=== PATIENT | female | born 2005 | race Caucasian/White ===

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

== ENCOUNTER 2025-04-14 07:53 | Day surgery (SDC) | payer OTHER, SELFPAY ==
--- OUTSIDE RECORDS SUMMARY | 2025-03-31 17:37 | XMS_ITS | Encounter Summary ---
Author Organization [facility] Address [address] [place] [address] Phone Care Team Providers Care Medical Record Consultant Name Role Phone Shayy Love DO Primary Care Provider [phone] Encounter Details Date Type Department Care Team (Late st Contact Info) Description 01/10/2017 Conversion Encounter [facility] [address] [place] [address] Social History Tobacco Use Types Packs/Day Years [...] Care Team (Late st Contact Info) Description 04/07/2025 2:15 PM EST Office Visit [address] [address] Shayy Love DO 150 [place] [address] 05/10/2025 9:00 AM EST Office Visit [address] [address] Shayy Love DO 150 [place] [address] documented as of this encounter Visit Diagnoses Not on filedocumented in this encounter Care Teams Medical Record Consultant Relationship Specialty Start Date End Date Shayy Love DO 150 [facility] [place] [address] PCP - General 01/04/17 documented as of this encounter
--- OUTSIDE RECORDS SUMMARY | 2025-03-31 17:37 | XMS_ITS | Encounter Summary ---
Author Organization [facility] Address [address] [place] [address] Phone Care Team Providers Care A Class Lineman Name Role Phone IvanShayy cline Primary Care Provider [phone] Encounter Details Date Type Department Care Team ([facility] st Contact Info) Description 02/15/2025 Results Follow-Up [facility] [place] [address] [place] [address] [place] [address] [place] [address] Social History Tobacco Use Types Packs/Day Years Used Date Smoking Tobacco: Never Smokeless Tobacco: Never Alcohol Use Standard Drinks/Week Comments Never 0 (1 standard drink = 0.6 oz pur e alcohol) Hunger/Food Answer Date Recorded In the last 12 months, did y ou or your family ever eat less than you felt you should because there wasn't enough money for food? No 11/30/2024 Stable Housing Answer Date Recorded Are you worried that in the next 2 months you may not have stable housing? No 11/30/2024 Transportation Concerns Answer Date Rec orded In the last 12 months, have you or your family ever had to go without healthcare because you didn't have a way to get there? No 11/30/2024 Hazards in Home Answer Date Recorded Think about the place you li ve. Do you have problems with any of the following? Pests (mice or roaches), mold, no/not working smoke detectors, water leaks, no window guards. No 2024 Financing Utilities Answer Date Recorde d In the last 12 months, has t he electric, gas, oil, or water company threatened to shut off your services in your home? No 11/30/2024 Safety at Home Answer Date Recorded Are you or your family worried about feeling saf e in your home? No 11/30/2024 Outside Support Answer Date Recorded Do you feel that you need mo re support from other people or programs to help you care for yourself or your family? No 11/30/2024 Understanding Health Concerns Answer Da te Recorded Do you need help understandi ng your or your child's healthcare needs (diagnosis, medications, plan, etc.)? No 11/30/2024 Financing Health Concerns Answer Date R ecorded In the last 12 months, was t here a time when your child needed to see a doctor or get medications or supplies but could not because of cost? No 11/30/2024 Missing School or Work Answer Date Leo rded Did you or your child miss s chool or work because of a health problem that could have been avoided? No 11/30/2024 Child Education Answer Date Recorded Do you have concerns about y our/your child's learning or behavior in school, preschool, or daycare? No 11/30/2024 Comments No Sex and Gender Information Value Date Recorded Sex Assigned at Not on file Legal Sex Female 5:21 PM EDT Gender Identity Not on file Sexual Orientation Straight 06/09/2022 8: 16 AM EST documented as of this encounter Plan of Treatment Upcoming Encounters Date Type Department Care Team (Late st Contact Info) Description 04/07/2025 2:15 PM EST Office Visit [address] [address] Shayy Love DO [address] [place] [address] 05/10/2025 9:00 AM EST Office Visit [address] [address] Shayy Love DO [address] [place] [address] documented as of this encounter Visit Diagnoses Not on filedocumented in this encounter Care Teams A Class Lineman Relationship Specialty Start Date End Date Shayy Love DO 150 [facility] [place] [address] PCP - General 01/04/17 documented as of this encounter
--- OUTSIDE RECORDS SUMMARY | 2025-03-31 17:37 | XMS_ITS | Clinical Summary ---
Author Organization [facility] Address [address] [place] [address] Phone Care Team Providers Care Cost Estimator Name Role Phone Shayy Love DO Primary Care Provider [phone] Allergies Active Allergy Reactions Criticality Noted Date Comments Amoxicillin Rash Low Medications sertraline 25 MG tabletIndicati ons:Generalize d anxiety disorder TAKE 1 TABLET BY MOUTH DAILY WITH SERTRALINE 100 MG TABLET FOR TOTAL OF 125 MG DAILY 90 tablet 02/23/20 25 Active loratadine 10 MG tabletIndicati ons:Acute URI Take 1 tablet (10 mg total) by mouth daily. 90 tablet 02/26/20 25 025 Active sertraline 100 MG tabletIndicati ons:Generalize d anxiety disorder TAKE 1 TABLET BY MOUTH EVERY DAY 90 tablet 03/24/20 25 Active sertraline 100 MG tabletIndicati ons:Generalize d anxiety disorder Take 1 tablet (100 mg total) by mouth once daily. 90 tablet 12/22/19 25 025 Discontinued sodium chloride 0.65 % nasal sprayIndicatio ns:Acute URI Administer 1 spray into each nostril as needed for congestion. 30 mL 1 02/26/20 25 025 Active Problems Patient Care Coordination No te Formatting of this note is d ifferent from the original. Nicotine patch Dosage: 21mg, 14mg, 7mg Use Instructions: Apply patch to clean skin, change patch every 24 hours 8-10-week treatment regimen: Use first dose for 6 weeks, then s tep down to lower dose; Use lower dose for 2 weeks, then s tep down to lowest dose for 2 more weeks Problem Noted Date Diagnosed Date Vaping nicotine dependence, non-tobacco product 04/15/2024 Overview (06/08/2024): Nicotine patch rx to assist w/ quitting- pt did not end up using as she quit cold turkey Assessment & Plan (11/30/2024 11:29 AM EDT): She vapes occasionally-socially, does not have her own vape device anymore She was doing well on the nicotine patch until summer came-sweating a lot and the patch would just come off Does not think she needs the patch for now but will let me know if she changes her mind in the future Assessment & Plan (09/21/2024 8:42 AM EDT): Doing well on patch so far, will be going to the 7mg patch soon Assessment & Plan (08/10/2024 4:33 PM EDT): [...] Use first dose for 6 weeks, then s tep down to lower dose; Use lower dose for 2 weeks, then s tep down to lowest dose for 2 more weeks Generalized anxiety disorder 03/16/2024 Overview (07/10/2024): Sertraline start MAR 19-up to 125 mg College counselor VANGIE Previous meds: Fluoxetine start MAR 19-nausea, DCed after 2 weeks, mom's concerns about other family members not doing well on this med Assessment & Plan (11/30/2024 11:27 AM EDT): She has noticed increased and sweating especially at night since she started sertraline-this is a possible side effect and we could try to decrease her dose or switch her to another medication if she would like It is not bothering her that much and she prefers to stay on sertraline so we will continue 125 mg dose since she is doing well on it Follow-up in 6 months Assessment & Plan (09/21/2024 11:56 AM EDT): BH screens reviewed- she likes her current sertraline dose and does not want to increase it Follow-up at her annual checkup in November-continue sertraline at 125 mg Assessment & Plan (08/10/2024 4:41 PM EDT): [...] Med check in a month May consider [facility] referral Assessment & Plan (06/12/2024 12:19 PM [...] Again encouraged patient to reach out to [facility] for student counseling services Assessment & Plan (03/16/2024 1:49 PM EDT): HAKEEM very high scoring After counseling the patient on risks and benefits of SSRIs, we will start prozac 10mg. Med start check-in call in a week by [facility] staff; knows to call immediately for significant side effects, especially significant agitation or any new thoughts about self-harm. F/u with me in 3 weeks. Nonintractable headache 03/16/2024 Overview (06/12/2024): Ribo and Mag suppl trial-nauseous with magnesium so DCed Overnight stay @ [facility] FEB [address] head wnl Assessment & Plan (11/30/2024 11:27 AM EDT): Had neurology consult last month-did not think prophylactic or daily headache med was needed; follow-up in February Assessment & Plan (09/21/2024 8:41 AM EDT): Neuro CS in October- would prefer to see Neuro first before adding any meds for her HAs Assessment & Plan (08/10/2024 4:32 PM EDT): [...] her TFT in meantime Strabismus 01/25/2016 Overview (09/21/2024): seeing Dr. Roblero 2024 Post-op 2024 Alternating strabismus per 2022 note [facility] No glasses currently Assessment & Plan (11/30/2024 11:28 AM EDT): S/p surgical correction, seeing Dr. Roblero, may be having additional surgery in the future Assessment & Plan (09/21/2024 12:01 PM EDT): just had surgery- may need to have another one done in 2mo to fully correct it Assessment & Plan (06/12/2024 12:21 PM EST): Has consult with Dr. Roblero in July Assessment & Plan (05/14/2024 7:33 PM EST): She did write a letter to Dr. Roblero about missing her consult and was able to re-book appointment for JUL25 Assessment & Plan (04/15/2024 2:05 PM EST): Dr. Roblero requested she write him a letter stating why she missed her consult w/ him- she has the letter all ready to mail out, just needs to send it! Assessment & Plan (03/25/2024 5:57 PM EDT): She was recently seen at [facility] and referred to a group near [place] for a consult on her strabismus but this appointment is not until August 2024 I will check with referrals to see if she can be seen by Dr. Roblero locally who does see patients adult and pediatric with strabismus Assessment & Plan (03/16/2024 1:26 PM EDT): Has documented alternating strabismus and sees [facility] She feels her strabismus is worse lately- [...] Assessment & Plan (11/29/2023 1:20 PM EDT): [facility] No glasses currently Resolved Problems Problem Noted Date Diagnosed Date Resolved Date Elevation of levels of liver transaminase levels 06/24/2024 08/10/2024 Overview (06/24/2024): May 2024-very mild we elevated AST, ALT; will repeat in 2 to 3 months Assessment & Plan (07/10/2024 9:34 AM EST): Repeat labs ordered Nausea 03/25/2024 11/30/2024 Overview (07/10/2024): Recurrent-improved Trial omeprazole/prilosec- did not [...] she is here for SSRI med check Influenza vaccine refused 06/08/2022 Cyst of skin and subcutaneous tissue 11/11/2018 11/29/2023 Overview (11/20/2020): ?dermoid cyst- could see surg in future for removal if bothering her Saw Derm who referred pt to pedi surg Encounters Date Type Department Care Team Description 03/23/[address] [address] Shayy Love DO Generalized anxiety disorder 02/25/2025 1:15 PM EDT Office Visit [address] [address] Cynthia Pradhan MD Acute URI (Primary Dx) 02/23/2025 Telephone [facility] [address] [place] [address] Shayy Love DO Letter 02/20/[address] [address] Cassandra Hall MD Generalized anxiety disorder 02/15/2025 11:15 AM EDT Office Visit [facility] [address] [place] [address] Jes Villalpando NP Pharyngitis, unspecified etiology (Primary Dx) 02/15/2025 Results Follow-Up [facility] [address] [place] [address] Tammie Bustamante [place] 01/22/[address] [address] Irlanda Morrow NP Generalized anxiety disorder from Last 3 Months Immunizations Immunization Administration [...] Comments No Known Problems Brother 1 Gian Wall No Known Problems Brother 2 Michael Wall No Known Problems Father Maday Wall Cancer Maternal Grandfather Cancer Maternal Grandmother No Known Problems Mother Humera Wall Hypertension Paternal Grandfather Diabetes Paternal Grandmother Lung cancer Paternal Grandmother No Known Problems Sister Nani Whitfielddulce Relation Name Status Comments Brother 1 Gian Wall Alive Brother: Aliv e and well, Alive and well Brother 2 Michael Whitfielddulce Alive Brother: Al alexa and well, Alive and well Father Maday Wall Alive Father: Alive and well Half-Brother Alive Half brother (M ): Alive and well, Alive and well Maternal Grandfather Materna l grandfather: Cancer - Maternal Grandmother Materna l grandmother: Cancer - Mother Humera Whitfielddulce Alive Mother: Al alexa and well Paternal Grandfather Alive Paterna l grandfather: Hypertension Paternal Grandmother Paterna l grandmother: Diabetes mellitus Sister Nani Mae Alive Sister: Alive and well Social History Tobacco Use Types Packs/Day [...] Sign Reading Time Taken Comments Blood Pressure 116/71 11/30/2024 10:54 AM EDT Pulse 76 11/30/2024 10:54 AM EDT Temperature 36.2 C (97.2 F) 02/25/2025 1:21 PM EDT Respiratory Rate - - Oxygen Saturation 98% 09/02/2024 8:13 AM EDT Inhaled Oxygen Concentration - - Weight 55.3 kg (122 lb) 02/25/2025 1:21 PM EDT Height 162.6 cm (5' 4 ) 11/30/2024 10:54 AM EDT Body Mass Index 20.94 11/30/2024 10:54 AM EDT Plan of Treatment Upcoming Encounters Date Type Department Care Team (Late st Contact Info) Description 04/07/2025 2:15 PM EST Office Visit [address] [address] Shayy Love, DO [address] [place] [address] 05/10/2025 9:00 AM EST Office Visit [address] [address] Shayy Love, DO [address] [place] [address] Health Maintenance Due Date Last Done Comments Men B Vaccine (1 of 2 - Standard) 2021 Chlamydia and Gonorrhea Screening 05/27/2024 03/05/2024, 11/29/2023, 06/08/2022 Influenza Vaccines (#1) 2024 04/29/2020 COVID-19 Vaccine (1 - 2024-2 6 season) 2025 DTaP,Tdap,and Td Vaccines (7 - Td or [...] Completed 06/08/2022, 018 Procedures * Due to [facility] law, this organization might not be sharing sensitive test results. Procedure Name Priority Date/Time Associated Diagnosis Comments POCT STREP A NUCLEIC ACID (AMPLIFIED PROBE) Routine 02/15/2025 11:55 AM EDT Pharyngitis, unspecified etiology CHLAMYDIA AND GONORRHEA, AMPLIFIED Routine 03/05/2024 5:14 PM EDT Screening for chlamydial disease from Last 3 Months or Most Recently Relevant to Health Maintenance Results * Due to [facility] law, this organization might not be sharing sensitive test results. * POCT Strep A Nucleic Acid (Amplified Probe) (02/15/2025 11:55 AM EDT) Pathologist [facility] Strep A Nucleic Acid Amplified Probe NOT DETECTED Negative NOT DETECTED [facility] Comment:SPC: PASS Internal Control Pass Present Pass [facility] Swab (Throat) 02/15/2025 11: 55 AM EDT 02/15/2025 11:55 AM EDT Narrative [facility] - 02/15/2025 11:55 AM EDT [email or web address] ([id number]), [facility] Lot: [id number], Expiry: [id number]: [email or web address] Testing Performed at [address], [place] [address] Exercise Teacher: Shayy Love DO CLIA: [id number] us Jes Villalpando NP POINT OF CARE TEST ORDERABLES Fi nal Result [facility] [address] [place] [address] * Chlamydia and Gonorrhoea, Amplified (03/05/2024 5:14 PM EDT) C trach FER Negative Negative [facility] N gonorrhoeae FER Negative Negative [facility] Urine (Urine) 03/05/2024 5:1 4 PM EDT 03/05/2024 Comment:Urine Narrative [facility] - 03/06/2024 4:08 PM EDT Performed at: 01 - [facility] [address], [address], [place], [place] [id number] Exercise Teacher: Daren Hampton MD, Phone: [phone] Jes Villalpando NP LAB MICROBIOLOGY - GENERAL ORDER CHARLES Final Result Performing Organization Address City/[facility] Co de Phone Number [facility] [address] [place] [address] from Last 3 Months or Most Recently Relevant to Health Maintenance Insurance [facility] NON PCC ACO [facility] Address: [facility] [address] [place] [address] Care Teams Cost Estimator Relationship Specialty Start Date End Date Shayy Love DO [address] [place] [address] [place] Iss[place] [address] PCP - General 01/04/17
--- OUTSIDE RECORDS SUMMARY | 2025-03-31 17:37 | XMS_ITS | Encounter Summary ---
Author Organization [facility] Address [address] [place] [address] Phone Care Team Providers Care Accounts Receivable Coordinator Name Role Phone Shayy Love DO Primary Care Provider [phone] Encounter Details Date Type Department Care Team (Late st Contact Info) Description 02/27/2012 Documentation [facility] [address] [place] [address] Family Medicine, Physician [address], [place] [id number] Social History Tobacco Use Types Packs/Day Years [...] Department Care Team (Late Contact Info) Description 04/07/2025 2:15 PM EST Office Visit [address] [address] Shayy Love DO [address] [place] [address] 05/10/2025 9:00 AM EST Office Visit [address] [address] Shayy Love DO [address] [place] [address] documented as of this encounter Visit Diagnoses Not on filedocumented in this encounter Care Teams Accounts Receivable Coordinator Relationship Specialty Start Date End Date Shayy Lvoe DO [address] [facility] [place] [address] PCP - General 01/04/17 documented as of this encounter
[2025-04-09 07:58] VITALS: BMI 20.9
--- NOTE | 2025-04-12 09:24 | HO.ANESPROP2 ---
Documented by User: Kristen Salter NP 04/12/25 09:26 HPI - Anesthesia Eval Consult details Narrative: 20 yr old female for bilateral Lateral Rectus Eye Muscle Recession s/p same procedure 08/2024 with GA, LMA 3 Vaping/nicotine use PMF Past Medical History Medical History Vaping nicotine dependence, non-tobacco product HAKEEM (generalized anxiety disorder) Surgical History Surgical History Hx of excision of mass Hx of eye surgery Social History Social History Are you a primary wound care technician to a significant other at home: No Do you presently have visiting nurse or other home services: No Tobacco use type: Smokeless Tobacco e-Cigarette/Vaping Use: Currently Using Use of substances other than those prescribed or required for medical reasons: No Are you DNR?: No Advance Directives: No Advance Directives Information Provided: Yes Meds Allergies Allergy/AdvReac Type Severity Reaction Status Date / Time amoxicillin Allergy Intermediate Rash Verified 04/14/25 09:11 Home Medications ?Medication ?Instructions ?Recorded ?Confirmed ?Last Taken ?Type sertraline 100 mg tablet 100 mg PO DAILY 09/09/24 04/09/25 Unknown History sertraline 25 mg tablet 25 mg PO DAILY 09/09/24 04/09/25 Unknown History Exam Height,Weight and Vital Signs: Height 5 ft 4 in Weight 55.3 kg Documented by User: Bryan Rodriguez MD 04/14/25 11:08 [facility] Past Medical History Medical History Vaping nicotine dependence, non-tobacco product HAKEEM (generalized anxiety disorder) Family History Family history of problems with anesthesia: No Surgical History Surgical History Hx of excision of mass Hx of eye surgery History of Problems with Anesthesia: No Social History Social History Are you a primary wound care technician to a significant other at home: No Do you presently have visiting nurse or other home services: No Tobacco use type: Smokeless Tobacco e-Cigarette/Vaping Use: Currently Using Use of substances other than those prescribed or required for medical reasons: No Are you DNR?: No Advance Directives: No Advance Directives Information Provided: Yes Meds Allergies Allergy/AdvReac Type Severity Reaction Status Date / Time amoxicillin Allergy Intermediate Rash Verified 04/14/25 09:11 Home Medications ?Medication ?Instructions ?Recorded ?Confirmed ?Last Taken ?Type sertraline 100 mg tablet 100 mg PO DAILY 09/09/24 04/09/25 Unknown History sertraline 25 mg tablet 25 mg PO DAILY 09/09/24 04/09/25 Unknown History Exam Exam Date and Time: 04/14/25 Airway Mallampati Class: I TM Dist: >3cm Neck ROM: Full Heart: rrr Lungs: ctab vesicular Assessment and Plan Assessment Anesthesia Assessment: Anesthesia Plan Discussed and Chart Reviewed Final Anesthetic Review Family History of Problems with Anesthesia: No History of Problems with Anesthesia: No NPO: Yes ASA Class: II Final Preanesthetic Review: No Changes in Pt Med Stat, Meds/Allgs Chart Reviewed, Consent Obtained/Reviewed and Anes Risks/Benef Reviewed Patient Risk: Low Procedure Risk: Low Anesthetic Plan Anesthetic Plan: GA Disposition: Standard PACU
[2025-04-14 09:36] VITALS: BP 116/71; PULSE 77; RESP 15; TEMP 37; O2SAT 96
[2025-04-14] MEDS: Lactated Ringers 1,000 ML 100 ML IVCONT (09:37)
[2025-04-14 09:48] LABS: UPreg QC Valid YES
[2025-04-14 12:04] VITALS: BP 119/66; PULSE 96; RESP 15; TEMP 36.6; O2SAT 100
[2025-04-14 12:09] VITALS: BP 127/83; PULSE 96; RESP 15; O2SAT 100
[2025-04-14] MEDS: Tetracaine HCl/PF 0.5% Oph Sol 4 ML DROPS 1 DROP EYE-BOTH (12:10)
[2025-04-14 12:14] VITALS: BP 117/90; PULSE 96; RESP 17; O2SAT 98
[2025-04-14 12:19] VITALS: BP 123/74; PULSE 105; RESP 16; O2SAT 99
[2025-04-14 12:34] VITALS: BP 120/84; PULSE 96; RESP 17; TEMP 37.2; O2SAT 99
--- NOTE | 2025-04-14 13:23 | HO.OPHTHAL ---
Ophthalmology Operative Note Date of Service: 04/14/25 Narrative: Diagnosis esotropia. Postoperative diagnosis same. Procedure bilateral lateral rectus resections of [address] Roblero. Anesthesia general. Complications none. The patient was brought to the operating room placed under general anesthesia. The eyes were prepped and draped in the usual sterile ophthalmic fashion. A lid speculum was placed in the right eye and an incision was made at bare sclera in the inferotemporal fornix. The lateral rectus was hooked and dissected free of its overlying fascial attachments. Was grasped with the insertion with a clamp and a 4 mm resection was marked off with cautery. The resection point was secured with a double-armed Vicryl suture and the distal muscle resected. The resection point was then drawn forward to the insertion with the Vicryl suture. Conjunctiva was closed with interrupted Vicryl sutures. An identical procedure was then performed on the left eye. The patient was then awoken from general anesthesia and discharged to postoperative recovery in good condition.
== END 2025-04-14 13:05 | disposition home or self-care (01) ==
PROVIDERS: Nurse Practitioner; PCP Pediatrics; Visit Provider Ophthalmology
PROC: (CPT 67311; principal; 2025-04-14 11:40)
DX: H50.05 Alternating esotropia (principal); F41.8 Other specified anxiety disorders; R51.9 Headache, unspecified; Z79.899 Other long term (current) drug therapy; Z88.1 Allergy status to other antibiotic agents; Z98.890 Other specified postprocedural states
CPT/HCPCS: 67311; 81025; J1100; J1596; J2003; J2250; J2704; J3010